=== PATIENT | male | born 1955 | race Caucasian/White ===

== ENCOUNTER → 2017-01-22 | Outpatient (CLI) | payer OTHER ==
[~2017-01-22] MED LIST: FLEXERIL10 MG PO; ORUDIS75 M1 PO; PREDNISONE PO
--- NOTE | ~2017-01-22 | CT13 ---
[facility] A Service of [facility] & [facility] RADIOLOGY TEXT RESULTS PATIENT: ASIF BISWAS LOCATION: [facility] : 59 UNIT #: [id number] AGE: [address]: Juan Manuel Medina MD SEX: M ORDER DR: [id number] [address] [address] [id number] O MR#: [id number] Acc #: [id number] NAME: ASIF BISWAS : 1955 SEX: M STUDY DATE/TIME: 01/22/2017 14:59 UNIT: [facility] ROOM: STUDY DESCRIPTION: CT Angio Abdomen Attending Physician: Juan Manuel Medina M.D. Referring Physician: Juan Manuel Medina M.D. Ordering Physician: Juan Manuel Medina M.D. Primary Care Physician: Juan Manuel Medina M.D. MEDICAL IMAGING REPORT This report is preliminary unless electronic signature is present. EXAM CT angiography of the abdomen with IV contrast 01/22/2017 HISTORY Abdominal aortic aneurysm, 1-year followup. Diagnosed December 2014. No current complaints. Additional history of atrial fibrillation. Hypertension. COMPARISON CT angiography of the abdomen 01/23/2016. TECHNIQUE 2 mm axial images through the abdomen after IV contrast administration in the arterial phase. 3-D reconstructed images were obtained of the abdominal aorta and reviewed at a dedicated workstation. This CT exam was performed with one or more of the following radiation dose reduction techniques: automatic exposure control, adjustment of mA and/or kV according to patient size, and iterative reconstruction. FINDINGS Fusiform infrarenal abdominal aortic aneurysm is re-demonstrated. It measures 5.2 cm AP x 5.1 cm transverse, slightly larger than on the 01/22/2016 exam where it measured 4.8 x 4.8 cm. As previously described, the aneurysm begins about 2.3 cm below the takeoff of the right renal artery. It tapers to 3 cm within 1 cm of the aortic bifurcation. No significant mural thrombus is seen within the aneurysm sac. There is no dissection. [id number] calcific atherosclerosis is seen throughout the abdominal aorta and common iliac arteries. In the bilateral common iliac arteries and imaged segments of the internal/external iliac arteries are patent. Celiac artery, SMA are patent. There is focal irregular plaque within the left renal artery ostium, without high-grade stenosis. [facility] A Service of [facility] RADIOLOGY TEXT RESULTS PATIENT: ASIF BISWAS LOCATION: [facility] : 59 UNIT #: [id number] AGE: [address]: Juan Manuel Medina MD SEX: M ORDER DR: 2 right renal arteries are present, with the accessory artery supplying the upper pole, and the dominant right renal artery is patent. KENY arises from the aortic aneurysm and appears patent. Mild emphysematous changes are present within the lung bases. 5.8 cm splenic cyst, and additional 1.8 cm and 2.2 cm right renal cysts again noted. The left kidney is unremarkable. The liver, gallbladder, pancreas, adrenals and left kidney are within normal limits. Unopacified bowel appears grossly unremarkable. Degenerative loss of disc height is present L5-S1. No acute osseous abnormalities are identified. IMPRESSION 1. Fusiform infrarenal biliary aneurysm measures slightly larger today, 5.2 x 5.1 cm compared to 4.8 x 4.8 cm on 01/22/2016. The aneurysm lumen is patent without significant eccentric or irregular thrombosis. The continuing iliac arteries, to extent imaged, appear patent as well. There is no dissection. 2. Right renal cyst and splenic cysts, stable. 3. Mild emphysematous changes. 4. A special note, review is also performed of the CTA of 09/20/2014. The aneurysm at that time measured 4.6 x 4.4 cm, and is clearly visibly larger when compared to today's study where it measures up to 5.2 x 5.1 cm. Dictated by... Elaine Paniagua M.D. THIS IS AN ELECTRONICALLY VERIFIED REPORT Elaine Paniagua M.D. at 01/28/2017 3:26 PM FROYLAN/shayy TD: 01/23/2017 20:39 JOB #: [id number] MEDICAL IMAGING REPORT Page 1 of 1
[2017-01-22 14:55] LABS: POC - CREATININE 1.31 mg/dL (0.64-1.27)
== END | disposition home or self-care (01) ==
LOC: SCT 07:28
PROVIDERS: Family Medicine
DX: I71.9 Aortic aneurysm of unspecified site, without rupture (principal); I72.2 Aneurysm of renal artery; N28.1 Cyst of kidney, acquired; D73.4 Cyst of spleen
CPT/HCPCS: 74175; 82565; Q9967